=== PATIENT | male | born 1990 | race Caucasian/White ===

== ENCOUNTER 2022-04-08 05:35 | Emergency (ER) | payer SELFPAY ==
[~2022-04-08] VITALS: Ht 193 cm; Wt 97.5 kg
--- NOTE | 2022-04-08 06:11 | NUR ---
TO ER BED 4. BIBSELF C/O HAVING HEART PROBLEMS FOR THE PAST FEW MONTHS "FEELS LIKE HEART IS STOPPING", PAIN RADIATING TO LEFT SHOULDER, FELT WORSE TODAY. AAOX4. AMBULATORY. CONNECTED TO MONITOR. AWAITING MD DIEGO
[2022-04-08 06:46] VITALS: BP 151/101
--- NOTE | 2022-04-08 06:46 | NUR ---
Patient discharged to home in stable condition. Written and verbal after care instructions given. Patient verbalizes understanding of instruction.
== END 2022-04-08 06:46 | disposition home or self-care (01) ==
LOC: ER 05:42
DX: R00.2 Palpitations (principal); Z60.2 Problems related to living alone